=== PATIENT | female | born 2000 | race Caucasian/White ===

== ENCOUNTER 2023-03-09 10:01 | Outpatient (CLI) | payer BC ==
[2023-03-09] VITALS (17 sets, daily range): BP systolic 111–132; BP diastolic 67–89; PULSE 75–113
== END 2023-03-09 23:59 | disposition home or self-care (01) ==
LOC: CARD DIAG 10:01
PROVIDERS: ATTEND Internal Medicine Interventional Cardiology
DX: R42 Dizziness and giddiness (principal)
CPT/HCPCS: 93660